=== PATIENT | female | born 1970 | race Caucasian/White ===

== ENCOUNTER 2016-05-20 20:39 | Emergency (ER) | payer OTHER ==
--- NOTE | 2016-05-20 21:03 | UC ---
Throat Pain/Nasal Aguilar HPI - HPI Summary HPI Summary: sore throat wheezing and cough for 2 days - History of Current Complaint Stated Complaint: SORE THROAT Time Seen by Provider: 05/20/16 20:42 Hx Obtained From: Patient Hx Last Menstrual Period: n/a ?: No Onset/Duration: Sudden Onset, Lasting Days Severity: Moderate Pain Intensity: 4 Pain Scale Used: 0-10 Numeric Cough: Nonproductive Associated Signs & Symptoms: Positive: Dysphagia, Wheezing, Sinus Discomfort - Epiglottits Risk Factors Epiglottis Risk Factors: Negative - Allergies/Home Medications Allergies/Adverse Reactions: Allergies Allergy/AdvReac Type Severity Reaction Status Date / Time Gabapentin [From Neurontin] Allergy Severe throat Verified 05/20/16 20:59 closes Clarithromycin [From Biaxin] Allergy Mild Rash Verified 05/20/16 20:59 Penicillins Allergy Mild Rash Verified 05/20/16 20:59 Propoxyphene Allergy Mild Rash Verified 05/20/16 20:59 [From Darvocet-N] Codeine AdvReac Mild migraine Verified 05/20/16 20:59 Oxycodone [From Percocet] AdvReac Headache Verified 05/20/16 20:59 PMH/Surg Hx/FS Hx/Imm Hx Previously Healthy: Yes Endocrine History Of: Reports: Diabetes - non insulin dependent, Thyroid Disease - partial thyroidectomy, r/t cysts Cardiovascular History Of: Reports: Hypertension Denies: Cardiac Disorders, Pacemaker/ICD Respiratory History Of: Reports: COPD, Asthma GI/ History Of: Reports: Ulcer - GERD Neurological History Of: Reports: Migraine Psychological History Of: Reports: Depression - Surgical History Surgical History: Yes Surgery Procedure, Year, and Place: . tubal ligation. hysterectomy/ bladder repair/sling. cholecystectomy. appendectomy,. throat surgery (UP3). Partial Thyroidectomy. T&A - Family History Known Family History: Negative: Respiratory Disease - Social History Alcohol Use: Rare Substance Use Type: None Smoking Status (MU): Never Smoked Tobacco - Immunization History Most Recent Influenza Vaccination: Fall 2014 Review of Systems Constitutional: Negative Skin: Negative Eyes: Negative ENT: Sore Throat Respiratory: Cough Cardiovascular: Negative Gastrointestinal: Negative Genitourinary: Negative Motor: Negative Neurovascular: Negative Musculoskeletal: Negative Neurological: Negative Psychological: Negative All Other Systems Reviewed And Are Negative: Yes Physical Exam Triage Information Reviewed: Yes Appearance: Well-Nourished, Ill-Appearing, Pain Distress Vital Signs Reviewed: Yes Eye Exam: Normal Eyes: Positive: Conjunctiva Clear ENT: Positive: Pharyngeal erythema, Nasal congestion, TMs normal, Muffled/ hoarse voice Dental Exam: Normal Neck exam: Normal Neck: Positive: Supple, Nontender, No Lymphadenopathy Respiratory: Positive: Chest non-tender, No respiratory distress, No accessory muscle use, Wheezing, Inspiration Cardiovascular Exam: Normal Cardiovascular: Positive: RRR, No Murmur, Pulses Normal Abdominal Exam: Normal Abdomen Description: Positive: Nontender, No Organomegaly, Soft Bowel Sounds: Positive: Present Musculoskeletal Exam: Normal Musculoskeletal: Positive: Strength Intact, ROM Intact, No Edema Neurological Exam: Normal Neurological: Positive: Alert, Muscle Tone Normal Psychological Exam: Normal Skin Exam: Normal Throat Pain/Nasal Course/Dx - Course Course Of Treatment: hx obtained, exam performed, medications prescribed for wheezing and cough. patient has her own ventolin at home. - Differential Dx/Diagnosis Differential Diagnosis/HQI/PQRI: Influenza, Laryngitis, Otitis Media, Pharyngitis, Sinusitis, Tonsillitis, URI Provider Diagnoses: nasal congestion. pharynigitis. wheezing Discharge - Discharge Plan Condition: Stable Disposition: HOME Patient Education Materials: Wheezing (ED) Additional Instructions: Take the prednisone as prescribed starting tomorrow morning. COntinue to use your albuterol inhaler every 4 hours as needed. Increase your fludi intake and get plenty of rest.
[2016-05-20 21:07] VITALS: BP 116/70
== END 2016-05-20 21:35 | disposition home or self-care (01) ==
LOC: UCCORT 20:39
DX: R09.81 Nasal congestion (principal); J02.9 Acute pharyngitis, unspecified; J45.909 Unspecified asthma, uncomplicated; Z88.1 Allergy status to other antibiotic agents; Z88.5 Allergy status to narcotic agent; Z88.0 Allergy status to penicillin; Z90.49 Acquired absence of other specified parts of digestive tract
CPT/HCPCS: 99212; G0463

== ENCOUNTER 2017-03-08 16:55 | Emergency (ER) | payer OTHER ==
[2017-03-08 17:25] VITALS: BP 137/67
--- NOTE | 2017-03-08 18:02 | UC ---
Throat Pain/Nasal Aguilar HPI - HPI Summary HPI Summary: 3 days hstory of sinus pressure, no fever, no cough. Diabetic. - History of Current Complaint Chief Complaint: UCRespiratory Stated Complaint: SINUSES Time Seen by Provider: 03/08/17 17:50 Hx Obtained From: Patient Hx Last Menstrual Period: n/a Onset/Duration: Gradual Onset, Lasting Days - 3 Associated Signs & Symptoms: Positive: Sinus Discomfort Related History: Seasonal Allergies - Allergies/Home Medications Allergies/Adverse Reactions: Allergies Allergy/AdvReac Type Severity Reaction Status Date / Time Gabapentin [From Neurontin] Allergy Severe throat Verified 03/08/17 17:18 closes Clarithromycin [From Biaxin] Allergy Mild Rash Verified 03/08/17 17:18 Penicillins Allergy Mild Rash Verified 03/08/17 17:18 Propoxyphene Allergy Mild Rash Verified 03/08/17 17:18 [From Darvocet-N] Codeine AdvReac Mild migraine Verified 03/08/17 17:18 Oxycodone [From Percocet] AdvReac Headache Verified 03/08/17 17:18 Home Medications: Home Medications Naproxen Sodium [Naproxen Sodium 220 mg] 440 mg PO PRN 03/08/17 [History] PMH/Surg Hx/FS Hx/Imm Hx Endocrine History: Diabetes Cardiovascular History: Other - high cholesterol Other Cardiovascular History: hypercholesterolemia - Surgical History Surgical History: Yes Surgery Procedure, Year, and Place: . tubal ligation. hysterectomy/ bladder repair/sling. cholecystectomy. appendectomy,. T&A. throat surgery ( UP3). Partial Thyroidectomy. T&A - Family History Known Family History: Positive: Diabetes, Other - CA colon Negative: Respiratory Disease - Social History Lives: With Family Alcohol Use: Occasionally Substance Use Type: None Smoking Status (MU): Never Smoked Tobacco Household Exposure Type: Cigarettes - Immunization History Most Recent Influenza Vaccination: DEC 2016 Review of Systems Constitutional: Fatigue Skin: Negative Eyes: Negative ENT: Negative Respiratory: Negative Cardiovascular: Negative Gastrointestinal: Other - history of reflux. Genitourinary: Negative Motor: Negative Neurovascular: Negative Musculoskeletal: Negative Neurological: Headache - sinus pressure. Psychological: Negative Is Patient Immunocompromised?: No All Other Systems Reviewed And Are Negative: No Physical Exam Triage Information Reviewed: Yes Appearance: No Pain Distress, Ill-Appearing - looks chronically unwell. Vital Signs: Initial Vital Signs Temp 97 F 03/08/17 17:21 Pulse 111 03/08/17 17:21 Resp 16 03/08/17 17:21 BP 137/67 03/08/17 17:21 Pulse Ox 98 03/08/17 17:21 Eyes: Positive: Conjunctiva Clear ENT: Positive: Pharynx normal, Other - past tonsillectomy Neck: Positive: Supple, Nontender, No Lymphadenopathy Respiratory: Positive: Lungs clear, Normal breath sounds Cardiovascular: Positive: RRR, No Murmur Musculoskeletal Exam: Normal Neurological Exam: Normal Psychological Exam: Normal Skin Exam: Normal Throat Pain/Nasal Course/Dx - Course Course Of Treatment: symptomatic treatment of URI, viral - Differential Dx/Diagnosis Differential Diagnosis/HQI/PQRI: Laryngitis, Otitis Media, URI Provider Diagnoses: viral illness. Discharge - Discharge Plan Condition: Stable Disposition: HOME Referrals: Sushant Weathers PA [Primary Care Provider] -
--- OUTSIDE RECORDS SUMMARY | 2017-03-09 11:34 | XMS REPORT | Clinical Summary ---
:1970 Author Organization [facility] Address [address] [place] [address] Phone Allergies, Adverse Reactions, Alerts Allergy Name Reaction Description Start Date Severity Status Provider DARVOCET Critical Active DORINDA GALLOWAY CODEINE Critical Active DORINDA GALLOWAY BIAXIN Critical Active DORINDA GALLOWAY PENICILLIN Critical Active DORINDA GALLOWAY PERCOCET migraine headache Critical Active AMBER SCHAEFER TRANSFORMER STOCK CLERK NEURONTIN Critical Active DORINDA GALLOWAY Conditions or Problems Problem Name Problem Onset Status Entry Provider Comment Standard Annotate Code Date Date Description Diabetes 250.00 Active DORINDA Diabetes followed by mellitus, 05/08 05/[address] Jaramillo type IISYBIL without mention controlled of complication, type II or unspecified type, not stated as uncontrolled Hypertension, 401.1 Active DORINDA Benign benign 05/08 06/12 JOSE ROBERTO essential essentialSYBIL hypertension controlled Asthma, 493.90 Active DORINDA Asthma, persistent, 05/08 01/03 JOSE ROBERTO unspecified moderate SYBIL GALLOWAY OBSTRUCTIVE 327.23 Active DORINDA Obstructive SLEEP APNEA 07/20 07/20 JOSE ROBERTO sleep apnea SYBIL GALLOWAY (adult) (pediatric) OVERACTIVE 596.51 Active DORINDA 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 SYBIL GALLOWAY Gastroesophag 530.11 Active DORINDA Reflux eal reflux 07/20 06/12 JOSE ROBERTO esophagitis disease with SYBIL GALLOWAY esophagitis Depression, 309.1 Active DORINDA Prolonged situational, 07/20 06/12 JOSE ROBERTO depressive prolonged SYBIL GALLOWAY reaction ALLERGIC 477.9 Active DORINDA Allergic RHINITIS 07/20 07/20 JOSE ROBERTO rhinitis, cause SYBIL GALLOWAY unspecified Hyperlipidemi 272.2 Active DORINDA Mixed a, type II-B 07/20 06/12 JOSE ROBERTO hyperlipidemia SYBIL GALLOWAY VITAMIN D 268.9 Active DORINDA Unspecified 07/18--19 DEFICIENCY 08/08 08/08 JOSE ROBERTO vitamin D SYBIL GALLOWAY deficiency LOW BACK 724.2 Active DORINDA Lumbago PAIN, CHRONIC 05/03 05/04 JOSE ROBERTO GALLOWAY UNSPECIFIED 701.9 Active DORINDA Unspecified face & HYPERTROPHIC& 05/23 05/23 JOSE ROBERTO hypertrophic neck amp;ATROPHIC SYBIL GALLOWAY and atrophic CONDITION conditions of SKIN skin DIFFUSE 610.1 Active ODRINDA 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 10/14 10/15 Mary Carmen uninodular MRI CAR BRACER goiter DEGENERATIVE 722.4 Active DORINDA Degeneration of DISC DISEASE, 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 ROBERTO cervical CERVICAL SYBIL GALLOWAY intervertebral SPINE disc Palpitations 785.1 Active DORINDA Palpitations freq--trans 06/13 06/13 SYBIL [place] random vibration sensations Abnormal 794.39 Active DORINDA Other Anterior cardiolite 01/06 10/16 JOSE ROBERTO nonspecific wall stress test SYBIL GALLOWAY abnormal ischemia, function study referred to of Cardiology, cardiovascular Cath--clear system Urinary 788.33 Active SISI [facility] Mixed incontinence, 0 0 GERGEN incontinence mixed ANNE (female) (male) Medication List Medication Instructions Start Stop Generic NDC Status Provider Patient Date Date Name Instruction MULTIVITAMINS 1 By Mouth MULTIPLE 870266 Active DORINDA ORAL CAPSULE Every Day 05/08 VITAMIN 66813 JOSE ROBERTO GALLOWAY PRAVACHOL 40 1 by mouth PRAVASTATIN 157536 Active DORINDA MG ORAL TABLET every pm 07/20 SODIUM 58709 JOSE ROBERTO GALLOWAY ADVAIR DISKUS 1 inhalations FLUTICASONE 062942 Active DORINDA 500-50 twice daily 07/20 -SALMETEROL 44109 JOSE ROBERTO MCG/DOSE SYBIL GALLOWAY INHALATION AEROSOL POWDER BREATH ACTIVATED PROAIR HFA 108 2 puffs every ALBUTEROL 582371 Active DORINDA (90 Base) 4 - 6 hours 05/16 SULFATE 40029 JOSE ROBERTO MCG/ACT as needed SYBIL GALLOWAY INHALATION AEROSOL SOLUTION PEN NEEDLES use once INSULIN PEN 717913 Active DORINDA 31G X 6 MM daily w/ 10/30 NEEDLE 00446 JOSE ROBERTO GALLOWAY ASPIRIN 81 MG 1 by mouth ASPIRIN 994449 Active DORINDA ORAL TABLET every day 08/04 78927 JOSE ROBERTO GALLOWAY TOVIAZ 8 MG 1 by mouth qd FESOTERODIN 566031 Active DORINDA ORAL TABLET 05/17 E FUMARATE 64903 JOSE ROBERTO EXTENDED SYBIL GALLOWAY RELEASE 24 HOUR ATIVAN 0.5 MG 1 by mouth 3 LORAZEPAM 218325 Active DORINDA ORAL TABLET times a day 05/16 66634 JOSE ROBERTO as needed for SYBIL GALLOWAY anxiety MDD: 3 LOPERAMIDE HCL 2 by mouth at LOPERAMIDE 457733 Active DORINDA 2 MG ORAL onset , 12/01 HCL 35330 JOSE ROBERTO CAPSULE repeat with 1 SYBIL GALLOWAY by mouth every stool up to 6 ZYRTEC ALLERGY 1 by mouth CETIRIZINE 587556 Active DORINDA 10 MG ORAL every day 05/08 HCL 22102 JOSE ROBERTO TABLET SYBIL GALLOWAY FREESTYLE LITE test 3 times GLUCOSE 473030 Active DORINDA TEST IN VITRO a day 12/14 BLOOD 13986 JOSE ROBERTO STRIP SYBIL GALLOWAY FREESTYLE test glucose BLOOD 336724 Active DORINDA SYSTEM KIT TID 12/14 GLUCOSE 35279 JOSE ROBERTO MONITORING SYBIL GALLOWAY SUPPL LEVEMIR 18 units once INSULIN 700837 Active DORINDA FLEXTOUCH 100 daily 05/24 DETEMIR 06306 JOSE ROBERTO UNIT/ML SYBIL GALLOWAY SUBCUTANEOUS SOLUTION PEN-INJECTOR INVOKANA 100 1 by mouth CANAGLIFLOZ 113890 Active DORINDA MG ORAL TABLET once daily 09/26 [place] [address] JOSE ROBERTO DEVINE PA MAGNESIUM 1 by mouth MAGNESIUM 022326 Active SISI JOB OXIDE 400 (240 BID 09/03 OXIDE 73342 GERGEN Mg) MG ORAL VILLAPIANO TABLET MYRBETRIQ 50 1 by mouth qd MIRABEGRON 841749 Active DORINDA MG ORAL TABLET 09/26 16510 JOSE ROBERTO EXTENDED DEVINE PA RELEASE 24 HOUR PROTONIX 40 MG 1 by mouth PANTOPRAZOL 185514 Active DORINDA ORAL TABLET BID 04/16 E SODIUM 33567 JOSE ROBERTO DELAYED DEVINE PA RELEASE SERTRALINE HCL 1 By Mouth SERTRALINE 527252 Active DORINDA 50 MG ORAL Every Day 07/10 HCL 20586 JOSE ROBERTO TABLET SYBIL GALLOWAY CYMBALTA 30 MG 3 by mouth DULOXETINE 247459 Active DORINDA ORAL CAPSULE daily 05/16 HCL 16878 JOSE ROBERTO DELAYED DEVINE PA RELEASE PARTICLES JANUVIA 100 MG 1 By Mouth SITAGLIPTIN 446448 Active DORINDA ORAL TABLET Every Day 10/16 PHOSPHATE 37904 JOSE ROBERTO GALLOWAY GLIMEPIRIDE 4 2 by mouth GLIMEPIRIDE 473091 Active DORINDA MG ORAL TABLET once daily 10/30 78186 JOSE ROBERTO GALLOWAY TENNIS ELBOW use as ELASTIC 205904 Active SISI STRAP directed on 12/13 BANDAGES 42875 EVELYN LAVERNE right arm & SUPPORTS Immunizations Vaccine Administration Date Value Standard Description influenza immunization (Flu given influenza virus vaccine, Vax) has been administered unspecified formulation pneumococcal immunization given pneumococcal polysaccharide administered vaccine, 23 valent influenza immunization (Flu given influenza virus vaccine, Vax) has been administered unspecified formulation influenza immunization (Flu given influenza virus vaccine, Vax) has been administered unspecified formulation PEDIATRIC PNEUMOCOCCAL given pneumococcal conjugate VACCINE ([id number]) #1 vaccine, 13 valent influenza immunization (Flu given influenza virus vaccine, Vax) has been administered unspecified formulation Tetanus toxoid, reduced given tetanus toxoid, reduced diphtheria toxoid and diphtheria toxoid, and acellular Pertussis vaccine, acellular pertussis vaccine, absorbed (TdaP) given adsorbed influenza immunization (Flu given influenza virus vaccine, Vax) has been administered unspecified formulation Vital Signs Date Name Value Unit Range Description blood pressure, diastolic 73 mm[Hg] BP beard blood pressure, systolic 115 mm[Hg] BP sys height E&M 63 [in_us] Bdy height pulse rate E&M 114 /min Heart rate respiratory rate E&M 18 /min Resp rate temperature E&M 98.5 [degF] Body temperature weight E&M 150.38 [lb_av] Weight Measured blood pressure, diastolic 82 mm[Hg] BP beard blood pressure, systolic 129 mm[Hg] BP sys pulse rate E&M 114 /min Heart rate respiratory rate E&M 18 /min Resp rate temperature E&M 98.4 [degF] Body temperature weight E&M 152.38 [lb_av] Weight Measured blood pressure, diastolic, second 73 mm[Hg] BP beard observation blood pressure, diastolic 73 mm[Hg] BP beard blood pressure, systolic, second 113 mm[Hg] BP sys observation blood pressure, systolic 113 mm[Hg] BP sys height E&M 63 [in_us] Bdy height pulse rate E&M 116 /min Heart rate respiratory rate E&M 18 /min Resp rate temperature E&M 98.1 [degF] Body temperature blood pressure, diastolic 69 mm[Hg] BP beard blood pressure, systolic 105 mm[Hg] BP sys height E&M 63 [in_us] Bdy height pulse rate E&M 108 /min Heart rate respiratory rate E&M 16 /min Resp rate temperature E&M 97.4 [degF] Body temperature weight E&M 154 [lb_av] Weight Measured blood pressure, diastolic 86 mm[Hg] BP beard blood pressure, systolic 137 mm[Hg] BP sys height E&M 63 [in_us] Bdy height pulse rate E&M 109 /min Heart rate respiratory rate E&M 18 /min Resp rate temperature E&M 98.1 [degF] Body temperature weight E&M 158 [lb_av] Weight Measured blood pressure, diastolic 71 mm[Hg] BP beard blood pressure, systolic 109 mm[Hg] BP sys height E&M 63 [in_us] Bdy height pulse rate E&M 80 /min Heart rate respiratory rate E&M 16 /min Resp rate temperature E&M 97.4 [degF] Body temperature weight E&M 156.13 [lb_av] Weight Measured blood pressure, diastolic 71 mm[Hg] BP beard blood pressure, systolic 114 mm[Hg] BP sys height E&M 63 [in_us] Bdy height pulse rate E&M 82 /min Heart rate respiratory rate E&M 18 /min Resp rate temperature E&M 97.9 [degF] Body temperature weight E&M 164 [lb_av] Weight Measured Diagnostic Results Date Name Value Unit Range Description Lab Report: BASIC METABOLIC PANEL, GRIS--neg, A1c--7.4, FBS--161 - Chemistry hemoglobin A1C, blood, as % of 7.4 % 4.2-6.3 total hemoglobin Estimated Average Glucose 166 mg/dL Glomerular Filtration rate >60 mL/min >60 Libyan Estimated Glomerular Filtration >60 mL/min mL/min/1.73m2 > 60 Rate (calc) creatinine, serum 1.0 mg/dL 0.6-1.3 urea nitrogen, blood 12 mg/dL 7-18 blood glucose, random 161 mg/dL 74-106 urea nitrogen/creatinine ratio, 12.0 ratio serum sodium, serum 138 mmol/L 099-979 5551/03/22 potassium, serum 4.1 mmol/L 3.5-5.1 chloride, serum 101 mmol/L 98-107 carbon dioxide, venous blood 28 mmol/L 21-32 anion gap, serum 9 mEq/L 8-16 calcium, serum 9.1 mg/dL 8.5-10.1 Lab Report: BASIC METABOLIC PANEL, GRIS--neg, A1c--7.4, FBS--161 - Urinalysis microalbumin/total urine volume < 6.0 mg/L mg/L < 20.0 Lab Report: CBS W/AUTOMATED DIFF - Chemistry Absolute Neutrophil count 2.91 K/UL {Cells}/uL 1.8-7.0 Absolute Lymphocytes 2.86 10*3/uL 1.0-4.0 BASOPHILS 0.07 0.0-0.1 Lab Report: CBS W/AUTOMATED DIFF - Hematology Eosinophil Absolute Count 1.01 10*3/uL 0.0-0.5 leukocyte count, blood 7.3 10*3/mm3 3.1-10.7 erythrocyte (RBC) count 4.74 M/UL 10*6/mm3 3.90-5.40 hemoglobin, blood 14.8 g/dL 11.6-15.8 hematocrit, blood 42.6 % 36.0-46.1 mean corpuscular volume, RBC 89.9 fL 80.9-99.0 mean corpuscular hemoglobin, RBC 31.2 pg 25.9-32.7 mean corpuscular hemoglobin concentration, 34.7 G/DL % 30.8- 34.3 RBC platelet count 222 10*3/mm3 891-253 3854/07/07 red blood cell distribution width, size 41.6 fL 3-47 density mean platelet volume 10.9 fL 8.9-12.4 neutrophils as percent of blood leukocytes 39.8 % 40.4-72.8 lymphocytes as percent of blood leukocytes 39.1 % 20.0-42.0 monocytes as percent of blood leukocytes 6.3 % 4.3-13.2 eosinophils as percent of blood leukocytes 13.8 % 0.0-6.6 basophils as percent of blood leukocytes 1.0 % 0.0-1.1 Lab Report: COMPREHENSIVE METABOLIC PANEL-FBS--168 - Chemistry creatinine, serum 0.9 mg/dL 0.6-1.3 Estimated Glomerular Filtration >60 mL/min mL/min/1.73m2 > 60 Rate (calc) Glomerular Filtration rate >60 mL/min >60 Libyan urea nitrogen/creatinine ratio, 12.2 ratio serum sodium, serum 140 mmol/L 903-903 8107/07/07 potassium, serum 3.9 mmol/L 3.5-5.1 chloride, serum 104 mmol/L 98-107 carbon dioxide, venous blood 27 mmol/L 21-32 anion gap, serum 9 mEq/L 8-16 calcium, serum 8.9 mg/dL 8.5-10.1 protein, total, serum 7.8 g/dL 6.4-8.2 albumin, serum 3.8 g/dL 3.4-5.0 globulins, serum, total 4.0 g/dL 1.9-4.3 albumin/globulin ratio, serum 1.0 ratio aspartate aminotransferase (SGOT), 19 U/L 15-37 serum alanine aminotransferase (SGPT), 46 U/L 12-78 serum blood glucose, random 168 mg/dL 74-106 urea nitrogen, blood 11 mg/dL 7-18 Lab Report: GLYCOHEMOGLOBIN A1C--7.7 - Chemistry hemoglobin A1C, blood, as % of total hemoglobin 7.7 % 4.2-6.3 Estimated Average Glucose 174 mg/dL Lab Report: LDL CHOLESTEROL PROFILE, MICROALB/CREAT RATIO,RANDOM - Chemistry protein, total urine random 56 mg/dL cholesterol, serum 159 mg/dL <200 triglyceride, serum, fasting 192 mg/dL <150 HDL cholesterol, serum 35 mg/dL >40 LDL cholesterol, serum 86 mg/dL < 100 Lab Report: LDL CHOLESTEROL PROFILE, MICROALB/CREAT RATIO,RANDOM - Urinalysis microalbumin/total urine volume < 5.0 mg/L mg/L < 20.0 Lab Report: MAGNESIUM--1.9 - Chemistry magnesium, serum 1.9 mg/dL 1.8-2.4 Lab Report: THYROID STIM HORMONE--0.84 - Chemistry thyroid stimulating hormone, serum 0.84 u[iU]/mL 0.30-4.20 Office Visit: OV: follow up - Urinalysis urine color yellow appearance, urine clear leukocyte esterase, urine, by dipstick negative nitrite, urine, semiquantitative negative urobilinogen, urine, semiquantitative (dipstick) 0.2 blood in urine (hemoglobin) by dipstick negative ketones, urine, by test strip trace (5) bilirubin, urine 1+ glucose, urine, semiquantitative 5+ pH, urine, semiquantitative 5.0 specific gravity, urine 1.015 Encounters Code Encounter Date Provider Facility CPT-96113 Ofc Vst, Est Level IV SISI SANTOS [facility] 13:14:48 EDT ANNE LYLES CPT-12186 Ofc Vst, Est Level SISI GALLOWAY [facility] III 23:02:27 EDT CPT-76498 Ofc Vst, Est Level IV DORINDA DEVINE [facility] 09:08:44 EDT PA CPT-49321 Ofc Vst, Est Level II DORINDA DEVINE [facility] 13:28:43 EDT PA CPT-32388 Ofc Vst, Est Level DORINDA DEVINE [facility] III 11:41:49 EDT PA CPT-57028 Ofc Vst, Est Level IV DORINDA DEVINE [facility] 09:30:58 EDT PA CPT-82385 Ofc Vst, Est Level IV DORINDA DEVINE [facility] 09:34:37 EST PA CPT-25302 Ofc Vst, Est Level IV DORINDA DEVINE [facility] 09:07:35 EDT PA CPT-51482 Ofc Vst, Est Level DORINDA DEVINE [facility] III 22:13:41 EDT PA CPT-15509 Ofc Vst, Est Level IV DORINDA DEVINE [facility] 09:06:51 EDT PA CPT-66505 Ofc Vst, Est Level IV DORINDA DEVINE [facility] 09:10:52 EST PA CPT-43194 Ofc Vst, Est Level DORINDA DEVINE [facility] III 21:18:01 EST PA CPT-57103 Ofc Vst, Est Level IV DORINDA DEVINE [facility] 09:43:56 EST PA CPT-32279 Ofc Vst, Est Level DORINDA DEVINE [facility] III 14:00:13 EDT PA CPT-16675 Ofc Vst, Est Level DORINDA DEVINE [facility] III 10:45:15 EDT PA CPT-41746 Ofc Vst, Est Level DORINDA DEVINE [facility] III 10:26:18 EDT PA CPT-83041 Ofc Vst, Est Level DORINDA DEVINE [facility] III 16:50:13 EDT PA CPT-36652 Ofc Vst, Est Level DORINDA DEVINE [facility] III 13:14:02 EDT PA CPT-59279 Ofc Vst, Est Level IV DORINDA DEVINE [facility] 10:45:33 EDT PA CPT-57418 Ofc Vst, Est Level DORINDA DEVINE [facility] III 10:05:26 EST PA CPT-01408 Ofc Vst, Est Level DORINDA DEVINE [facility] III 09:56:23 EDT PA CPT-57459 Ofc Vst, Est Level DORINDA DEVINE [facility] III 15:29:12 EDT PA CPT-00975 Ofc Vst, Est Level DORINDA DEVINE [facility] III 09:16:31 EDT PA CPT-87745 Ofc Vst, Est Level IV DORINDA DEVINE [facility] 13:05:13 EST PA CPT-89069 Ofc Vst, Est Level IV DORINDA DEVINE [facility] 15:59:32 EST PA CPT-56744 Ofc Vst, Est Level V DORINDA DEVINE [facility] 16:17:41 EST PA CPT-64804 Ofc Vst, Est Level DORINDA DEVINE [facility] III 22:33:40 EDT PA CPT-05918 Ofc Vst, Est Level DORINDA DEVINE [facility] III 16:14:19 EDT PA CPT-16873 Ofc Vst, Est Level IV DORINDA DEVINE [facility] 21:35:45 EDT PA CPT-90486 Ofc Vst, Est Level DORINDA DEVINE [facility] III 14:04:16 EST PA CPT-22104 Ofc Vst, Est Level DORINDA DEVINE [facility] III 22:12:15 EST PA CPT-42295 Ofc Vst, Est Level IV DORINDA DEVINE [facility] 14:05:19 EST PA CPT-63070 Ofc Vst, Est Level DORINDA DEVINE [facility] III 08:38:45 EST PA CPT-13204 Ofc Vst, Est Level DORINDA DEVINE [facility] III 16:11:37 EDT PA CPT-10063 Ofc Vst, Est Level DORINDA DEVINE [facility] III 10:54:27 EDT PA CPT-73668 Ofc Vst, Est Level DORINDA DEVINE [facility] III 09:36:21 EDT PA CPT-43544 Ofc Vst, Est Level IV DORINDA DEVINE [facility] 11:58:33 EDT PA CPT-74358 Ofc Vst, Est Level DORINDA DEVINE [facility] III 10:48:55 EDT PA CPT-65260 Ofc Vst, Est Level DORINDA DEVINE [facility] III 10:22:30 EDT PA CPT-84370 Ofc Vst, Est Level DORINDA DEVINE [facility] III 10:43:20 EDT PA CPT-42533 Ofc Vst, Est Level IV DORINDA DEVINE [facility] 09:44:58 EDT PA CPT-79675 Ofc Vst, Est Level DORINDA DEVINE [facility] III 09:53:37 EST PA CPT-61443 Ofc Vst, Est Level DORINDA JOSE ROBERTO DEVINE [facility] III 21:55:44 EST PA CPT-64916 Ofc Vst, Est Level DORINDA JOSE ROBERTO RAYENS [facility] III 11:47:47 EST PA CPT-53330 Ofc Vst, Est Level AMBER SCHAEFER NP [facility] III 15:15:19 EST CPT-15065 Ofc Vst, Est Level IV DORINDA SNELLLEY DEVINE [facility] 23:56:56 EST PA CPT-07479 Ofc Vst, Est Level DORINDA JOSE ROBERTO DEVINE [facility] III 21:31:11 EDT PA CPT-42995 Ofc Vst, Est Level IV DORINDA JOSE ROBERTO DEVINE [facility] 23:32:05 EDT PA CPT-49935 Ofc Vst, Est Level DORINDA JOSE ROBERTO DEVINE [facility] III 09:42:18 EDT PA CPT-08882 Ofc Vst, Est Level DORINDA SNELLHARLEY DEVINE [facility] III 20:48:47 EDT PA CPT-25104 Ofc Vst, Est Level IV DORINDA SNELLLEY DEVINE [facility] 10:25:11 EDT PA CPT-86554 Ofc Vst, New Level II DORINDA JOSE ROBERTO RAYENS [facility] 21:52:20 EDT PA Procedures Code Procedure Name Date Entry Date Standard Description CPT-81199 Urine Dip - In House 09:47:44 EDT CPT-35315 Influenza 3 yrs. & up 09:15:37 EDT CPT-44750 EKG w/ Int/rep 09:15:36 EDT CPT-51504 Pneumococcal - 23 09:16:32 EDT CPT-65585 Admin one [facility] 09:16:31 EDT CPT-56851 EKG w/ Int/rep 09:09:39 EDT CPT-38132 Influenza 3 yrs. & up 09:00:50 EDT CPT-65625 Admin one Imm 09:00:48 EDT CPT-40835 Urine Dip - In House 22:13:41 EDT CPT-77631 Venipuncture 09:48:46 EST CPT-01295 Venipuncture 10:40:52 EST CPT-80820 Admin one Imm 10:40:52 EST CPT-65930 Influenza 3 yrs. & up 09:33:30 EST CPT-82385 Urine Dip - In House 10:25:07 EDT CPT-32266 Admin one [facility] 15:54:58 EDT CPT-78420 Prevnar 10:40:33 EDT CPT-08965 Influenza 3 yrs. & up 10:05:26 EST CPT-18488 Admin one [facility] 10:05:26 EST CPT-10352 Urine Dip - In House 16:22:40 EDT CPT-57360 PAP (Procedure Only) 16:22:40 EDT CPT-06414 Influenza 3 yrs. & up 16:16:41 EST CPT-40847 Admin 2nd or more (each) 16:16:41 EST CPT-33572 TDAP (Boostrix) 16:16:41 EST CPT-42449 Admin one Imm 16:16:41 EST CPT-60806 Therapeutic Injection 10:55:45 EDT CPT-E6741-2 Toradol 60mg 10:55:45 EDT CPT-89047 Urine Dip - In House 10:22:30 EDT CPT-73998 A1C - In House 14:34:21 EDT
--- OUTSIDE RECORDS SUMMARY | 2017-03-09 11:35 | XMS REPORT ---
:1970 External Reference #:[id number] Author Organization [facility] Address [address], [address] [place] [address] Phone [phone] Care Team Providers Name Role Phone Brigida Weathers PA Primary Care Physician Unavailable Payers Type Date Identification Numbers Payment Provider Subscriber Commercial Effective: Policy Number: [place] Medicare Brigette Sawant 2013 [id number] Giuliano Price PayID: [id number] [address] [place] [address] Problems Date Description Provider Status Onset: 02/09/2015 Irritable bowel syndrome Leonor Post PA-C Active Note: colo to TI Bx 2015 Onset: 02/09/2015 Gastroesophageal reflux disease Leonor Post PA-C Active Onset: 02/09/2015 Esophageal dysmotility Leonor Post PA-C Active Note: upper to D4 Bx 52F 2015 Onset: 02/09/2015 Depressive disorder Leonor Post PA-C Active Onset: 02/09/2015 Allergic rhinitis Leonor Post PA-C Active Onset: 02/09/2015 Asthma Leonor Post PA-C Active Onset: 02/09/2015 Migraine Leonor Post PA-C Active Onset: 02/09/2015 Bladder muscle dysfunction - Leonor Post PA-C Active overactive Note: cystopexy Onset: 02/09/2015 Type 2 diabetes mellitus Leonor Post PA-C Active Note: 2011 A1c 6.8 Onset: 02/09/2015 Essential hypertension Leonor Post PA-C Active Onset: 02/09/2015 Obstructive sleep apnea syndrome Leonor Post PA-C Active Note: moderate before UVP; cannot tolerate CPAP; Onset: 02/09/2015 Obesity Leonor Post PA-C Active Family History Date Family Member(s) Problem(s) Comments First Brother Diabetes Second Brother Diabetes Social History Type Date Description Comments Marital Status Lives With Spouse Diet Patient follows no dietary restrictions Occupation Unemployed Work Status Disabled Cigarette Use Former Cigarette Smoker ETOH Use < 10 G/D Smoking Patient is a former smoker Recreational Drug Use Denies Drug Use Daily Caffeine Consumes on average 5-10 sodas per day Allergies, Adverse Reactions, Alerts Date Description Reaction Status Severity Comments 10/14/2008 Darvocet active 10/14/2008 Penicillins active 10/14/2008 Codeine/Acetaminophen active 10/14/2008 Miralax active 02/10/2015 Biaxin active Throat closes 02/10/2015 Neurontin active Throat closes Medications Medication Date Status Form Strength Qnty SIG Indications Ordering Provider Trulicity 12/27/ Active Solution 0.75mg/0.5 2ml once sq E11.9 2016 Pen-Inject ML weekly 0.75 Litvinmg Vega Januvia 09/21/ Active Tablets 50mg 90tabs 1 by mouth E11.9 Vincent 2016 every day Silvia Jaramillo Midodrine HCL 03/21/ Active Tablets 10mg 90tabs take one [place] 2015 tablet by MD Tres mouth three times a day Nitrostat 01/24/ Active Tablets 0.4mg 25tabs 1. tab s.l. R07.2 [place] 2016 Sub as needed MD Tres every 5 min. Calcium 10/27/ Active Chewtabs 500mg 360uni 1 by mouth K21.9 Allen Carbonate 2016 ts every 2 h Vatra, Antacid as needed M.DCarlos heartburn Invokamet 09/22/ Active Tablets 150-1000mg 180tab Take One E11.9 Vincent 2016 s Tablet By Stevevin Mouth Twice M.D. A Day Pantoprazole 02/10/ Active Tablets DR 40mg 180tab 1 by mouth K21.9 Allen Sodium 2015 s twice day Silvia Estrella Loratadine / Active Tablets 10mg 1 by mouth Unknown 0000 every day Advair Diskus / Active Aerosol 500-50mcg/ 1 puff Unknown 0000 Dose twice a day prn Ventolin HFA / Active Aerosol 108(90Base 1-2 puffs Unknown 0000 ) mcg/Act every 4-6 hours as needed Cymbalta / Active Caps DR 30mg 3 by mouth Unknown 0000 Part every day Magnesium / Active Capsules 400mg 1 by mouth Unknown 0000 bid Zofran / Active Tablets 4mg as needed Unknown 0000 Glimepiride / Active Tablets 4mg 2 by mouth Unknown 0000 daily Toviaz / Active Tablets ER 8mg 1 by mouth Unknown 0000 24HR every day Pravastatin / Active Tablets 40mg 1 by mouth Unknown Sodium 0000 every day Vitamin D-3 / Active Capsules 1000Unit 1 by mouth Unknown 0000 every day Sertraline HCL / Active Tablets 50mg 1 by mouth Unknown 0000 every day Ativan / Active Tablets 0.5mg 1 tab by Unknown 0000 mouth bid prn Trazodone HCL / Active Tablets 100mg 1 by mouth Unknown 0000 every night at bedtime Clindamycin / Active Capsules 300mg 1 cap every Unknown HCL 0000 6 hours Metoprolol 02/14/ Hx Tablets 25mg 180tab 1 tab by [place] Tartrate 2016 - s mouth twice MD Tres 09/21/ daily 2017 Midodrine HCL 02/14/ Hx Tablets 5mg 60tabs take 1 tab [place] 2016 - by mouth MD Tres 03/21/ twice daily 2016 Clopidogrel 01/24/ Hx Tablets 75mg 30tabs once daily R07.2 [place] Bisulfate 2015 MD Tres Invokamet 09/22/ Hx Tablets 150-1000mg 180tab 1 by mouth E11.9 Vincent 2016 - s twice a day Ella 09/22/ MBhavna 2016 Levemir 09/22/ Hx Solution 100Unit/ML 45ml 32 u subq E11.9 Vincent Flextouch 2016 - Pen-Inject daily Ella 09/21/ MBhavna 2017 Polyethylene 03/17/ Hx Powder 3350NF 1units 17 grams K58.9 Allen Glycol 3350 2014 - daily every Vatra, 08/07/ night at M.D. 0160 bedtime with 8 oz of fluid (hold for loose stool) Peg-3350/Elect 03/17/ Hx Solution 236gm 2jugs drink 1 of R19.5 Allen rolytes 2014 Rec the jugs Vatra, the evening M.D. before the procedure, the other jug the morning of the procedure a/d Golytely 02/10/ Hx Solution 227.1gm 1units drink /2 K62.5 Allen 2014 - Rec the jug the Vatra, 03/17/ day before .D. 2014 (1 glass every 10 minutes), repeat and drink the other half the morning of the procedure Metformin HCL / Hx Tablets 1000mg 1 po bid Edinson M. 0000 - Jason 10/03/ Silvia, 2015 [facility] Lisinopril / Hx Tablets 10mg 90tabs 1 po qd Edinson M. 0000 - Jason 11/08/ Silvia, 2016 [facility] Pravastatin / Hx Tablets 20mg 1 po qd Edinson M. Sodium 0000 - Jason 09/22/ Silvia, 2016 [facility] Prilosec / Hx Capsules 20mg 1 tab po Edinson M. 0000 - DR qd/prn Jason 02/10/ Silvia, 2014 [facility] Pantoprazole / Hx Tablets DR 40mg 90tabs 1 by mouth Allen Sodium 0000 - every day Vat, Silvia 2014 Metoprolol / Hx Tablets 50mg 2 by mouth Unknown Tartrate 0000 - twice a day 2015 Tradjenta 00/ Hx Tablets 5mg 1 by mouth Unknown 0000 every day Trazodone HCL 00/ Hx Tablets 100mg 1 by mouth Unknown 0000 - at bedtime 2015 Lisinopril 00/00/ Hx Tablets 5mg 1 by mouth Unknown 0000 every day Vital Signs Date Vital Result Comment 12/27/2016 BP Systolic 102 mmHg BP Diastolic 68 mmHg Height 63 inches 5'3" Weight 151.00 lb BMI (Body Mass Index) 26.7 kg/m2 BSA (Body Surface Area) 1.72 m2 [place] body weight in kilograms 52 09/21/2016 BP Systolic 118 mmHg BP Diastolic 80 mmHg Height 63 inches 5'3" Weight 155.00 lb BMI (Body Mass Index) 27.5 kg/m2 BSA (Body Surface Area) 1.74 m2 [place] body weight in kilograms 52 03/21/2016 BP Systolic Sitting Left Arm 102 mmHg BP Diastolic Sitting Left Arm 62 mmHg Heart Rate 85 /min Respiratory Rate 18 /min Height 63 inches 5'3" Weight 166.00 lb BMI (Body Mass Index) 29.4 kg/m2 BSA (Body Surface Area) 1.79 m2 [place] body weight in kilograms 52 02/15/2016 BP Systolic Sitting Left Arm 102 mmHg BP Diastolic Sitting Left Arm 68 mmHg Heart Rate 80 /min Respiratory Rate 16 /min Weight 163.00 lb 02/10/2016 BP Systolic 120 mmHg BP Diastolic 76 mmHg Height 63 inches 5'3" Weight 164.50 lb BMI (Body Mass Index) 29.1 kg/m2 BSA (Body Surface Area) 1.78 m2 01/25/2016 BP Systolic Sitting Left Arm 114 mmHg BP Diastolic Sitting Left Arm 76 mmHg Heart Rate 83 /min Respiratory Rate 18 /min Height 63 inches 5'3" Weight 168.00 lb BMI (Body Mass Index) 29.8 kg/m2 BSA (Body Surface Area) 1.80 m2 11/16/2015 Height 63 inches 5'3" Weight 164.00 lb BMI (Body Mass Index) 29.0 kg/m2 BSA (Body Surface Area) 1.78 m2 [place] body weight in kilograms 52 11/09/2015 BP Systolic 112 mmHg BP Diastolic 80 mmHg Height 63 inches 5'3" Weight 162.00 lb BMI (Body Mass Index) 28.7 kg/m2 BSA (Body Surface Area) 1.77 m2 10/28/2015 BP Systolic 142 mmHg BP Diastolic 68 mmHg Heart Rate 94 /min Respiratory Rate 18 /min Height 63 inches 5'3" Weight 164.00 lb BMI (Body Mass Index) 29.0 kg/m2 BSA (Body Surface Area) 1.78 m2 O2 % BldC Oximetry 98 % Ra 10/26/2015 Height 63 inches 5'3" Weight 164.00 lb BMI (Body Mass Index) 29.0 kg/m2 BSA (Body Surface Area) 1.78 m2 [place] body weight in kilograms 52 10/05/2015 BP Systolic 106 mmHg BP Diastolic 68 mmHg Body Temperature 97.2 F Heart Rate 106 /min Respiratory Rate 18 /min Height 63 inches 5'3" Weight 166.00 lb BMI (Body Mass Index) 29.4 kg/m2 BSA (Body Surface Area) 1.79 m2 O2 % BldC Oximetry 96 % Ra 09/23/2015 BP Systolic 102 mmHg BP Diastolic 68 mmHg Height 63 inches 5'3" Weight 169.38 lb BMI (Body Mass Index) 30.0 kg/m2 BSA (Body Surface Area) 1.80 m2 03/17/2015 BP Systolic 120 mmHg BP Diastolic 77 mmHg Heart Rate 92 /min Height 63 inches 5'3" Weight 167.00 lb BMI (Body Mass Index) 29.6 kg/m2 BSA (Body Surface Area) 1.79 m2 02/10/2015 BP Systolic 118 mmHg BP Diastolic 76 mmHg Heart Rate 76 /min Respiratory Rate 12 /min Height 63 inches 5'3" Weight 170.00 lb BMI (Body Mass Index) 30.1 kg/m2 BSA (Body Surface Area) 1.80 m2 10/30/2008 Heart Rate 84 /min Respiratory Rate 12 /min Weight 163.00 lb 10/14/2008 Heart Rate 80 /min Regular Respiratory Rate 12 /min Weight 168.00 lb Results Test Date Test Result H/L Range Note CBS W/Automated Diff 10/13/2016 White Blood Count 7.3 K/uL 3.1-10.7 1 Red Blood Count 4.74 M/uL 3.90-5.40 1 Hemoglobin 14.8 gm/dL 11.6-15.8 1 Hematocrit 42.6 % 36.0-46.1 1 Mean Cell Volume 89.9 fl 80.9-99.0 1 Mean Corpuscular HGB 31.2 pg 25.9-32.7 1 Mean Corpuscular HGB Conc 34.7 g/dL High 30.8-34.3 1 Platelet Count 222 K/uL 150-400 1 Red Cell Distri Width SD 41.6 fl 3-47 1 Red Cell Distri Width %CV 12.9 % 11.7-14.4 1 Mean Platelet Volume 10.9 fL 8.9-12.4 1 Neut% 39.8 % Low 40.4-72.8 1 Lymph % 39.1 % 20.0-42.0 1 Pershing % 6.3 % 4.3-13.2 1 Eo% 13.8 % High 0.0-6.6 1 Bas% 1.0 % 0.0-1.1 1 Neut# 2.91 K/uL 1.8-7.0 1 Lymph # 2.86 K/uL 1.0-4.0 1 Pershing # 0.46 K/uL 0.3-0.9 1 Eos # 1.01 K/uL High 0.0-0.5 1 Baso # 0.07 K/uL 0.0-0.1 1 Comprehensive Metabolic Panel 10/13/2016 Glucose 168 mg/dL High 74-106 1 BUN 11 mg/dL 7-18 1 Creatinine 0.9 mg/dL 0.6-1.3 1 Glom Filtration Rate, Estimate >60 mL/min >60 1 If >60 mL/min >60 1, 2 BUN/Creat 12.2 ratio 1 Sodium 140 mmol/L 136-145 1 Potassium 3.9 mmol/L 3.5-5.1 1 Chloride 104 mmol/L 98-107 1 Carbon Dioxide 27 mmol/L 21-32 1 Anion Gap 9 mEq/L 8-16 1 Calcium 8.9 mg/dL 8.5-10.1 1 Total Protein 7.8 g/dL 6.4-8.2 1 Albumin 3.8 g/dL 3.4-5.0 1 Globulin 4.0 g/dL 1.9-4.3 1 Alb/Glob 1.0 ratio 1 Bilirubin,Total 0.4 mg/dL 0.2-1.0 1 Sgot/Ast 19 U/L 15-37 1 SGPT/Alt 46 U/L 12-78 1 Alkaline Phosphatase 59 U/L 45-117 1 Glycohemoglobin A1c 10/13/2016 Glycohemoglobin (A1c) 7.7 % High 4.2-6.3 1 , 3 eAG 174 mg/dL 1 LDL Cholesterol Profile 10/13/2016 Cholesterol 159 mg/dL <200 1, 4 Triglycerides 192 mg/dL High <150 1, 5 HDL Cholesterol 35 mg/dL Low >40 1, 6 LDL-Cholesterol 86 mg/dL < 100 1, 7 Microalb/Creat Ratio,Random 10/13/2016 Microalbumin,Urine < 5.0 mg/L & lt; 20.0 1 Microalbumin/Creatinine Ratio TNP ug/mgCrt < 30.0 1, 8 Urine Creatinine Conc 56 mg/dL 1 Laboratory test finding 10/13/2016 Free T4 0.95 ng/dL 0.76-1.46 1 Thyroid Stim Hormone 0.84 uIU/mL 0.30-4.20 1 Glycohemoglobin A1c 01/13/2016 Glycohemoglobin (A1c) 7.0 % High 4.2-6.3 9 , 10 eAG 154 mg/dL 9 @[facility] Pat Id: [id number] 9 @[facility] Req #: [id number] 9 Comprehensive Metabolic Panel 01/13/2016 Glucose 168 mg/dL High 74-106 9 BUN 11 mg/dL 7-18 9 Creatinine 1.0 mg/dL 0.6-1.3 9 Glom Filtration Rate, Estimate >60 mL/min >60 9 If >60 mL/min >60 9, 11 BUN/Creat 11.0 ratio 9 Sodium 135 mmol/L Low 136-145 9 Potassium 3.8 mmol/L 3.5-5.1 9 Chloride 102 mmol/L 98-107 9 Carbon Dioxide 25 mmol/L 21-32 9 Anion Gap 8 mEq/L 8-16 9 Calcium 8.6 mg/dL 8.5-10.1 9 Total Protein 7.6 g/dL 6.4-8.2 9 Albumin 3.8 g/dL 3.4-5.0 9 Globulin 3.8 g/dL 1.9-4.3 9 Alb/Glob 1.0 ratio 9 Bilirubin,Total 0.5 mg/dL 0.2-1.0 9 Sgot/Ast 15 U/L 15-37 9 SGPT/Alt 28 U/L 12-78 9 Alkaline Phosphatase 65 U/L 45-117 9 @[facility] Pat Id: [id number] 9 @[facility] Req #: [id number] 9 Is Patient Fasting? Fasting 9 LDL Cholesterol Profile 01/13/2016 Cholesterol 143 mg/dL <200 9, 12 Triglycerides 237 mg/dL High <150 9, 13 HDL Cholesterol 38 mg/dL Low >40 9, 14 LDL-Cholesterol 58 mg/dL < 100 9, 15 @[facility] Pat Id: [id number] 9 @[facility] Req #: [id number] 9 Is Patient Fasting? Fasting 9 Laboratory test finding 11/04/2015 C-Peptide 5.5 ng/mL High 1.1-4.4 16 Comprehensive Metabolic Panel 11/04/2015 Glucose 151 mg/dL High 74-106 BUN 12 mg/dL 7-18 Creatinine 1.2 mg/dL 0.6-1.3 Glom Filtration Rate, Estimate 51 mL/min >60 If >60 mL/min >60 17 BUN/Creat 10.0 ratio Sodium 138 mmol/L 136-145 Potassium 4.3 mmol/L 3.5-5.1 Chloride 104 mmol/L 98-107 Carbon Dioxide 26 mmol/L 21-32 Anion Gap 8 mEq/L 8-16 Calcium 8.7 mg/dL 8.5-10.1 Total Protein 7.8 g/dL 6.4-8.2 Albumin 4.0 g/dL 3.4-5.0 Globulin 3.8 g/dL 1.9-4.3 Alb/Glob 1.1 ratio Bilirubin,Total 0.3 mg/dL 0.2-1.0 Sgot/Ast 23 U/L 15-37 SGPT/Alt 37 U/L 12-78 Alkaline Phosphatase 55 U/L 45-117 Laboratory test finding 11/04/2015 Cortisol,Am 13.13 g/dL 4.30-22.40 Brett-65 Autoantibody < 5.0 U/mL 0.0-5.0 18 Glycohemoglobin A1c 11/04/2015 Glycohemoglobin (A1c) 8.3 % High 4.2-6.3 19 eAG 192 mg/dL Microalb/Creat Ratio,Random Ur 11/04/2015 Microalbumin,Urine 9.2 mg/L &lt ; 20.0 Microalbumin/Creatinine Ratio 8.4 ug/mgCrt < 30.0 Urine Creatinine Conc 110 mg/dL Laboratory test finding 10/13/2015 Duodenum, Biopsy See Note 20 Laboratory test finding 09/22/2015 Polyp Colon And/Or See Note 21 Rectum Laboratory test finding 02/24/2015 Duodenum, Biopsy See Note 22 Glycohemoglobin A1c 02/07/2013 Glycohemoglobin (A1c) 6.7 % High 4.8-6.0 23 eAG 146 mg/dL 1 E04.1 E11.65 E11.9 E07.9 2 Note: Persistent reduction for 3 months or more in an eGFR <60 mL/min/1.73 m2 defines CKD. Patients with eGFR values >/=60 mL/min/1.73 m2 may also have CKD if evidence of persistent proteinuria is present. The original MDRD equation for estimated GFR is not valid for patients less than 18 years of age. Additional information may be found at www.kdoqi.org. 3 Elevated levels of HbA1c suggest the need for more aggressive treatment of glycemia. The [place] [employer] recommends that a primary goal of therapy should be a HbA1c of <7% and that physicians should re-evaluate the treatment regimen in patients with HbA1c values consistently >8%. 4 Reference Guidelines*: Desirable: ........... < 200 mg/dL Borderline High: ..... 200-239 mg/dL High: ................ >=240 mg/dL * The National Cholesterol Education Program (NCEP) 5 Reference Guidelines*: Normal: ............. < 150 mg/dL Borderline High: .... 150-199 mg/dL High: ............... 200-499 mg/dL Very High: .......... > 500 mg/dL * Source: National Cholesterol Education Program (NCEP) 6 Reference Guidelines*: Low HDL: ..... < 40 mg/dL Normal: ..... 40-60 mg/dL Desirable: ... > 60 mg/dL *The National Cholesterol Education Program(NCEP) 7 Reference Guidelines*: Optimal:........... <100 mg/dL Near Optimal....... 100-129 mg/dL Borderline High.... 130-159 mg/dL High............... 160-189 mg/dL Very High.......... >=190 mg/dL * Source: National Cholesterol Education Program (NCEP) 8 Valid ratio could not be calculated due to non-numeric result. 9 E11.9 10 Elevated levels of HbA1c suggest the need for more aggressive treatment of glycemia. The [place] [employer] recommends that a primary goal of therapy should be a HbA1c of <7% and that physicians should re-evaluate the treatment regimen in patients with HbA1c values consistently >8%. 11 Note: Persistent reduction for 3 months or more in an eGFR <60 mL/min/1.73 m2 defines CKD. Patients with eGFR values >/=60 mL/min/1.73 m2 may also have CKD if evidence of persistent proteinuria is present. The original MDRD equation for estimated GFR is not valid for patients less than 18 years of age. Additional information may be found at www.kdoqi.org. 12 Reference Guidelines*: Desirable: ........... < 200 mg/dL Borderline High: ..... 200-239 mg/dL High: ................ >=240 mg/dL * The National Cholesterol Education Program (NCEP) 13 Reference Guidelines*: Normal: ............. < 150 mg/dL Borderline High: .... 150-199 mg/dL High: ............... 200-499 mg/dL Very High: .......... > 500 mg/dL * Source: National Cholesterol Education Program (NCEP) 14 Reference Guidelines*: Low HDL: ..... < 40 mg/dL Normal: ..... 40-60 mg/dL Desirable: ... > 60 mg/dL *The National Cholesterol Education Program(NCEP) 15 Reference Guidelines*: Optimal:........... <100 mg/dL Near Optimal....... 100-129 mg/dL Borderline High.... 130-159 mg/dL High............... 160-189 mg/dL Very High.......... >=190 mg/dL * Source: National Cholesterol Education Program (NCEP) 16 C-Peptide reference interval is for fasting patients. 17 Note: Persistent reduction for 3 months or more in an eGFR <60 mL/min/1.73 m2 defines CKD. Patients with eGFR values >/=60 mL/min/1.73 m2 may also have CKD if evidence of persistent proteinuria is present. The original MDRD equation for estimated GFR is not valid for patients less than 18 years of age. Additional information may be found at www.kdoqi.org. 18 Performed at: - [facility] [address] [id number] [employer] Agent: Lizette Greco MD, Phone: [phone] Performed at: - [facility] [address] [id number] [employer] Agent: David Self MD, Phone: [phone] 19 Elevated levels of HbA1c suggest the need for more aggressive treatment of glycemia. The [place] [employer] recommends that a primary goal of therapy should be a HbA1c of <7% and that physicians should re-evaluate the treatment regimen in patients with HbA1c values consistently >8%. 20 OPERATION/PROCEDURE Upper endoscopy DIAGNOSIS: "SMALL BOWEL, RANDOM, DUODENAL BIOPSIES": - SMALL BOWEL MUCOSA WITH NORMAL VILLOUS ARCHITECTURE AND NO SIGNIFICANT PATHOLOGIC ABNORMALITIES. - NO VIROPATHIC CHANGES OR INFECTIOUS ORGANISMS IDENTIFIED. /clf 0944 GROSS Received in formalin in a properly labeled container with the patient's name and accession number designated, "RANDOM DUODENAL BIOPSY". The specimen consists of multiple pieces of hussein, soft rubbery tissue measuring 0.5 x 0.4 x 0.3 cm. in aggregate. Submitted entirely, one cassette. CC/clf PRE OPERATIVE DIAGNOSIS Dysphagia REVIEW CODE CODE: I Signed Electronically signed FRANCISCO NOLEN MD [id number] 21 OPERATION/PROCEDURE Colonoscopy DIAGNOSIS: "COLON, RANDOM, BIOPSY": - FOCALLY ACTIVE COLITIS. - NO EVIDENCE OF CHRONICITY. - NO EVIDENCE OF MICROSCOPIC COLITIS. - SEE COMMENT. /[facility] 1003 INTERPRETATION COMMENT The findings are favored to represent a transient or acute infectious process. Clinical-pathologic correlation is recommended. GROSS Received in formalin in a properly labeled container with the patient's name and accession number designated, "RANDOM COLON BIOPSIES". The specimen consists of multiple pieces of hussein, soft rubbery tissue measuring 0.4 x 0.3 x 0.2 cm. in aggregate. Submitted entirely, one cassette. [facility] PRE OPERATIVE DIAGNOSIS Hematochezia REVIEW CODE CODE: I Signed Electronically signed Karlee SALVADOR MD 1053 22 OPERATION/PROCEDURE Upper endoscopy DIAGNOSIS: "COLON, RANDOM BIOPSIES": - SMALL BOWEL MUCOSA WITH NORMAL VILLOUS ARCHITECTURE, NO SIGNIFICANT PATHOLOGIC ABNORMALITY. - NO INFECTIOUS AGENTS OR VIRAL PATHOLOGIC CHANGE IS IDENTIFIED. /[facility] 0951 GROSS The specimen is received in formalin in a properly labeled container with the patient's name and accession number designated, "RANDOM DUODENAL BIOPSY". The specimen consists of multiple pieces of hussein, soft, rubbery tissue with an aggregate measurement of 0.6 x 0.5 x 0.2 cm. Submitted entirely, one cassette. CC/clf PRE OPERATIVE DIAGNOSIS Hematochezia, dysphagia REVIEW CODE CODE: I Signed Electronically signed FRANCISCO NOLEN MD 1044 23 A1c value between 5.7% and 6.4% is considered at increased risk for diabetes. A1c value greater than 6.5 % is considered essentially diagnostic for Type II diabetes. Current guidelines recommend a treatment goal of <7% for diabetic patients. This method will measure glycosylated hemoglobin variants, HbS, HbG, HbH, HbWayne, HbC, HbE, etc. Other hemoglobin- opathies may give incorrect results with this test. Procedures Date CPT Code Description Status 01/18/2017 72115 EKG Interpretation And Report Only Completed 07/11/2016 15748 Eye Exam Est Patient Comprehensive Completed 01/25/2016 38450 EKG-Tracing And Report Completed 01/06/2016 33493 Stress Test Interpre And Report Only Completed 01/06/2016 39289 Stress Test Physician Super Only Completed 01/06/2016 16881 Stress Test Physician Super Only Completed 01/06/2016 22128 Myocardial Imaging Tomographic Multiple Study At Rest Completed Or Stress 10/13/2015 72792 EGD With Biopsy Completed 09/22/2015 93274 Colonoscopy With Biopsy Completed 06/30/2015 85424 Eye Exam New Patient Comprehensive Completed 02/24/2015 13834 Endoscopy Small Intestine W/Biopsy Completed 02/13/2013 19201 Anesthesia, Neck Organ Surgery Not Otherwise Spec 1Yr Completed Or Older 02/07/2013 96202 EKG Interpretation And Report Only Completed 06/25/201280372 Asp./Injection major joint Completed 03/16/2011 44514 Anesthesia, Intraoral Surgery Not Otherwise Spec Completed 01/30/2011 36909 EKG Interpretation And Report Only Completed 10/21/2008 00182 Echocardiogram Complete Completed 10/21/2008 47359 Stress Test Interpre And Report Only Completed 10/21/2008 54354 Ejection Fraction Completed 10/21/2008 86084 Myocardial Wall Motion Completed 10/21/2008 18401 Cardiolite Stress/Rest Spect Completed 10/14/2008 00877 EKG-Tracing And Report Completed Encounters Type Date Location Provider CPT E/M Dx Office Visit 12/27/2016 10:15a Endocrinology Vincent Jaramillo M.D. 75770 I10 E78.2 E11.9 G47.30 R00.0 J44.9 Office Visit 09/21/2016 1:15p Endocrinology Vincent Jaramillo M.D. 59283 E66.9 I10 E78.2 E11.9 G47.30 M81.8 Office Visit 03/21/2016 9:40a [place] [address] I95.1 R07.2 R00.2 Office Visit 02/15/2016 9:00a [place] [address] R07.2 I10 I95.1 R94.30 Office Visit 02/10/2016 9:45a Endocrinology Vincent Jaramillo M.D. 59735 E66.9 I10 E78.2 E11.9 G47.30 Office Visit 01/25/2016 8:40a [place] [address] R94.30 R07.2 R42 I10 E78.2 Office Visit 11/09/2015 9:30a Endocrinology Vincent Jaramillo M.D. 21694 M81.8 E66.9 I10 E78.2 E11.9 G47.30 Office Visit 10/28/2015 2:30p SHAWN Estrella M.D. 06946 K58.9 K22.4 K21.9 Office Visit 10/05/2015 1:30p SHAWN Estrella M.D. 34243 K58.9 K22.4 K21.9 Office Visit 09/23/2015 9:00a Endocrinology Vincent Jaramillo M.D. 09890 E66.9 I10 E78.2 E11.9 G47.30 Office Visit 03/17/2015 9:30a SHAWN Post PA-C 72978 R19.5 K58.9 K21.9 R13.10 Office Visit 02/10/2015 10:00a SHAWN Post PA-C 10922 K62.5 K58.9 K21.9 R13.10 Office Visit 10/14/2008 2:50p Cardiology Office Edinson Gomez, 51136 401.1 M.Jemma, [facility] 272.4 272.0 250.02 305.1 786.51 785.2 Plan of Care Future Appointment(s):02/26/2017 9:30 am - Vincent Jaramillo M.D. at [id number] /10/2018 10:30 am - Rommel Roach MD at Ophthalmology
== END 2017-03-08 18:22 | disposition home or self-care (01) ==
LOC: UCCORT 16:55
DX: B34.9 Viral infection, unspecified (principal); E78.00 Pure hypercholesterolemia, unspecified; Z88.1 Allergy status to other antibiotic agents; Z88.5 Allergy status to narcotic agent; Z88.0 Allergy status to penicillin; Z77.22 Contact with and (suspected) exposure to environmental tobacco smoke (acute) (chronic)
CPT/HCPCS: 99211; G0463

== ENCOUNTER 2017-04-14 12:13 | Emergency (ER) | payer OTHER ==
[2017-04-14 12:42] VITALS: BP 134/65
--- NOTE | 2017-04-14 13:43 | UC ---
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 Now c/o chest congestion , fever/chills and noproductive cough x2 weeks. Taking ibuprofen, day/nyquil prn w/ no relief. " States she was seen here a few weeks ago and was dx'd with virus. has persistent sinus pain/pressure. tmax 100, although states this is a fever for her. + asthma hx, was taken off of daily steroid inhalers in past b/c no longer needed. denies COPD. Quit smoking "a long time ago" but has occasional ciggs when she is stressed. -denies palpitations. has been taking cold med/decongestants. - History of Current Complaint Chief Complaint: UCRespiratory Stated Complaint: CHEST CONGESTION, COUGH Time Seen by Provider: 04/14/17 13:26 Hx Last Menstrual Period: n/a - Allergies/Home Medications Allergies/Adverse Reactions: Allergies Allergy/AdvReac Type Severity Reaction Status Date / Time Gabapentin [From Neurontin] Allergy Severe throat Verified 04/14/17 12:36 closes Clarithromycin [From Biaxin] Allergy Mild Rash Verified 04/14/17 12:36 Penicillins Allergy Mild Rash Verified 04/14/17 12:36 Propoxyphene Allergy Mild Rash Verified 04/14/17 12:36 [From Darvocet-N] Codeine AdvReac Mild migraine Verified 04/14/17 12:36 Oxycodone [From Percocet] AdvReac Headache Verified 04/14/17 12:36 Home Medications: Home Medications Canagliflozin-Metformin HCl [Invokamet 150-1000 mg] 1 tab BID 04/14/17 [History Confirmed 04/14/17] PMH/Surg Hx/FS Hx/Imm Hx Previously Healthy: Yes Endocrine History: Diabetes, Dyslipidemia - Surgical History Surgical History: Yes Surgery Procedure, Year, and Place: . tubal ligation. hysterectomy/ bladder repair/sling. cholecystectomy. appendectomy,. T&A. throat surgery ( [facility]). Partial Thyroidectomy - Family History Known Family History: Positive: Diabetes, Other - CA colon Negative: Respiratory Disease - Social History Alcohol Use: Occasionally Substance Use Type: None Smoking Status (MU): Never Smoked Tobacco Household Exposure Type: Cigarettes - Immunization History Most Recent Influenza Vaccination: DEC 2016 Review of Systems Constitutional: Fever - tmax 100 Skin: Negative Eyes: Negative ENT: Nasal Discharge, Sinus Congestion, Sinus Pain/Tenderness Respiratory: Cough, Other - +wheezing Cardiovascular: Negative Gastrointestinal: Negative Genitourinary: Negative Motor: Negative Neurovascular: Negative Musculoskeletal: Negative Neurological: Negative Psychological: Negative Is Patient Immunocompromised?: No All Other Systems Reviewed And Are Negative: Yes Physical Exam Triage Information Reviewed: Yes Appearance: Well-Nourished, Ill-Appearing - mild-moderately, lying on exam table when I entered room., Pain Distress Vital Signs: Initial Vital Signs Temp 97.3 F 04/14/17 12:37 Pulse 113 04/14/17 12:37 Resp 22 04/14/17 12:37 BP 134/65 04/14/17 12:37 Pulse Ox 97 04/14/17 12:37 Vital Signs Reviewed: Yes Eye Exam: Normal ENT: Positive: Hearing grossly normal, Pharyngeal erythema - +PND, Nasal congestion, Nasal drainage, TMs normal, Hoarse voice, Sinus tenderness. Negative: TM bulging, TM dull, TM red, Tonsillar swelling, Tonsillar exudate Dental Exam: Other - poor dentition Neck exam: Normal Neck: Positive: Supple, Nontender, No Lymphadenopathy Respiratory: Positive: No respiratory distress, No accessory muscle use, Decreased breath sounds, Rhonchi - left infrascapular rhonchi, improved slightly after cough. wheeze improved after cough. Cardiovascular: Positive: RRR, Pulses Normal, Tachycardia - improved to 100 Abdomen Description: Positive: Nontender, Soft Musculoskeletal Exam: Normal Neurological Exam: Normal Psychological Exam: Normal Skin Exam: Normal UC Diagnostic Evaluation - Laboratory O2 Sat by Pulse Oximetry: 97 Respiratory Course/Dx - Course Course Of Treatment: CXR. -HR initiall 113 w/ cold meds/decongestants. adv to avoid these meds. HR improved to 100. no sx of palp or SOB - Differential Dx/Diagnosis Differential Diagnosis/HQI/PQRI: Asthma, Bronchitis, Lower Resp Infection, Sinusitis Provider Diagnoses: Sinusitis, asthma, bronchitis Discharge - Discharge Plan Condition: Stable Disposition: HOME Patient Education Materials: Sinusitis (ED), Asthma (ED), Acute Bronchitis (ED) Referrals: Sushant Weathers PA [Primary Care Provider] - 4 Days Additional Instructions: -Make sure to take a probiotic daily while on antibiotics to help prevent a potential complication of antibiotic use called c diff. Some well known brands that can be found OTC are florastor, align and [employer] [facility]. Make sure to complete the entire prescription unless advised otherwise by your health care provider. - We decided not to use prednisone because of the risk of elevating your sugars further (you reported your last A1c was 7.7%). This may be considered as the next step if your symptoms persist. -The chest xray was negative for pneumonia. _make sure to use your albuterol regularly until you improve
--- NOTE | 2017-04-14 14:22 | RAD ---
INDICATION: Cough left lower lobe bronchi. COMPARISON: There are no prior studies available for comparison. TECHNIQUE: Dual-energy PA and lateral views of the chest were obtained. FINDINGS: The heart is within normal limits in size. Mediastinal and hilar contours appear within normal limits. The lungs are clear. No pleural effusion is present. Postsurgical changes are noted in the lower cervical spine. IMPRESSION: NO EVIDENCE FOR ACTIVE CARDIOPULMONARY DISEASE.
== END 2017-04-14 14:38 | disposition home or self-care (01) ==
LOC: UCCORT 12:13
DX: J32.9 Chronic sinusitis, unspecified (principal); J45.909 Unspecified asthma, uncomplicated; E11.9 Type 2 diabetes mellitus without complications; Z88.8 Allergy status to other drugs, medicaments and biological substances; Z88.1 Allergy status to other antibiotic agents; Z88.0 Allergy status to penicillin; Z88.5 Allergy status to narcotic agent; Z79.84 Long term (current) use of oral hypoglycemic drugs
CPT/HCPCS: 71046; 99212; G0463

== ENCOUNTER 2019-04-23 09:29 | Emergency (ER) | payer OTHER ==
[2019-04-23 09:56] VITALS: BP 114/72
[2019-04-23 10:13] LABS: Influenza A Molecular POSITIVE (Negative)
--- NOTE | 2019-04-23 10:43 | UC ---
FLU HPI - HPI Summary HPI Summary: 48-year-old female who has flulike symptoms for the past 2 days. Her son was diagnosed with the flu today as well. - History of Current Complaint Chief Complaint: UCGeneralIllness Stated Complaint: COUGH,BODY ACHES Time Seen by Provider: 04/23/19 09:59 Hx Obtained From: Patient Hx Last Menstrual Period: n/a ?: No Onset/Duration: Sudden Onset Severity Currently: Mild Severity Initially: Moderate Pain Intensity: 0 Associated Signs & Symptoms: Positive: Fever, Myalgia, Cough, Nasal Congestion Related Hx: Possible Flu/Infectious Exposure - Allergy/Home Medications Allergies/Adverse Reactions: Allergies Allergy/AdvReac Type Severity Reaction Status Date / Time acetaminophen Allergy Rash Verified 04/23/19 09:50 [From Darvocet-N] clarithromycin [From Biaxin] Allergy Anaphylatic Verified 04/23/19 09:50 Shock codeine Allergy See Comment Verified 04/23/19 09:50 gabapentin Allergy Anaphylatic Verified 04/23/19 09:50 Shock Penicillins Allergy Rash Verified 04/23/19 09:50 propoxyphene Allergy Rash Verified 04/23/19 09:50 [From Darvocet-N] Home Medications: Home Medications D-Methorphan/PE/Acetaminophen [Day Time Cold-Flu Liquid] 1 dose PO ONCE [History Confirmed 04/23/19] Dm/Acetaminophen/Doxylamine [Nighttime Cold and Flu Liquid] 1 dose PO ONCE 04/23 [History Confirmed 04/23/19] PMH/Surg Hx/FS Hx/Imm Hx Previously Healthy: Yes Endocrine History: Diabetes Cardiovascular History: Hypertension Respiratory History: COPD, Asthma - Surgical History Surgical History: Yes Surgery Procedure, Year, and Place: . tubal ligation. hysterectomy/ bladder repair/sling. cholecystectomy. appendectomy. T&A. throat surgery ( [facility]). Partial Thyroidectomy - Family History Known Family History: Positive: Diabetes, Other - CA colon Negative: Respiratory Disease - Social History Lives: With Family Alcohol Use: Occasionally Substance Use Type: None Smoking Status (MU): Never Smoked Tobacco Household Exposure Type: Cigarettes - Immunization History Most Recent Influenza Vaccination: DEC 2016 Review of Systems All Other Systems Reviewed And Are Negative: Yes Constitutional: Positive: Fever, Chills ENT: Positive: Sore Throat - Scratchy throat, Nasal Discharge Respiratory: Positive: Cough - Dry nonproductive cough Musculoskeletal: Positive: Myalgia Neurological: Positive: Headache - Mild headache Physical Exam Triage Information Reviewed: Yes Appearance: Well-Appearing, No Pain Distress, Well-Nourished Vital Signs: Initial Vital Signs Temp 97.4 F 04/23/19 09:52 Pulse 124 04/23/19 09:52 Resp 16 04/23/19 09:52 BP 114/72 04/23/19 09:52 Pulse Ox 97 04/23/19 09:52 Vital Signs Reviewed: Yes Eyes: Positive: Conjunctiva Clear ENT: Positive: Pharynx normal, TMs normal, Uvula midline Neck: Positive: Supple, Nontender, No Lymphadenopathy Respiratory: Positive: Lungs clear, Normal breath sounds, No respiratory distress, No accessory muscle use Cardiovascular: Positive: No Murmur, Pulses Normal, Brisk Capillary Refill, Tachycardia Abdomen Description: Positive: Nontender, No Organomegaly, Soft. Negative: CVA Tenderness (R), CVA Tenderness (L), Distended, Guarding, Hepatomegaly, Splenomegaly Bowel Sounds: Positive: Present Musculoskeletal Exam: Normal Neurological Exam: Normal Psychological Exam: Normal Skin Exam: Normal Flu Course/Dx - Course Course Of Treatment: Rapid flu test positive The patient has chronic illnesses and I offered Tamiflu however she states that she is not feeling that badly and she would prefer not to take the Tamiflu. She is to follow-up with her primary care provider early next week if no improvement. - Differential Dx/Diagnosis Provider Diagnosis: Influenza A Discharge ED - Sign-Out/Discharge Documenting (check all that apply): Patient Departure All imaging exams completed and their final reports reviewed: No Studies - Discharge Plan Condition: Good Disposition: HOME Patient Education Materials: Influenza (DC) Referrals: Sushant Weathers PA [Primary Care Provider] - Additional Instructions: Increase fluids, rest, take ibuprofen for fever follow-up with your primary care provider if no improvement early next week. - Billing Disposition and Condition Condition: GOOD Disposition: Home - Attestation Statements Provider Attestation: I was available for consult. This patient was seen by the JACOBY. The patient was not presented to, seen by, or examined by me. -Andrea
== END 2019-04-23 10:44 | disposition home or self-care (01) ==
LOC: UCCORT 09:29
DX: J10.1 Influenza due to other identified influenza virus with other respiratory manifestations (principal); E11.9 Type 2 diabetes mellitus without complications; I10 Essential (primary) hypertension; J44.9 Chronic obstructive pulmonary disease, unspecified; Z88.6 Allergy status to analgesic agent; Z88.5 Allergy status to narcotic agent; Z88.0 Allergy status to penicillin
CPT/HCPCS: 99211; G0463